=== PATIENT | male | born 1960 | race Caucasian/White ===

== ENCOUNTER 2017-07-01 10:35 | Emergency (ER) | payer OTHER ==
[~2017-07-01] VITALS: Ht 175.3 cm; Wt 74.8 kg
[2017-07-01 10:39] VITALS: BP 141/92
[2017-07-01] MEDS ORDERED: HYDROcodone/APAP 5/325MG 1 TAB TABLET PO ONE (11:15)
--- NOTE | 2017-07-01 11:21 | PHYS DOC ---
Past Medical History Past Medical History: No Pertinent History Past Surgical History: No Surgical History Alcohol Use: None Drug Use: None Adult General Chief Complaint Chief Complaint: HAND PROBLEM HPI HPI Patient is a 57 year old male presents to the ED complaining of left hand and wrist injury 2 months ago. Patient states that he was carrying a car door and it smashed his hand when he lost his balance. Patient states the pain has been getting progressively worse. When the injury happened 2 months ago the patient states he had swelling but since then swelling has gone down. States he has pain with range of motion of his thumb. Describes the pain as sharp. Rates the pain as 7 out of 10 when using it. Denies fever, headache, head/neck injury, rash, skin changes. Review of Systems Review of Systems Constitutional: Denies fever or chills [] Eyes: Denies change in visual acuity, redness, or eye pain [] HENT: Denies nasal congestion or sore throat [] Respiratory: Denies cough or shortness of breath [] Cardiovascular: No additional information not addressed in HPI [] GI: Denies abdominal pain, nausea, vomiting, bloody stools or diarrhea [] : Denies dysuria or hematuria [] Musculoskeletal: Denies back pain. Complains of left wrist and hand pain. [] Integument: Denies rash or skin lesions [] Neurologic: Denies headache, focal weakness or sensory changes [] Endocrine: Denies polyuria or polydipsia [] Current Medications Current Medications Current Medications Medications (Trade) Dose Ordered Sig/Tang Start Time Stop Time Status Last Admin Dose Admin Acetaminophen/ Hydrocodone Bitart (Lortab 5/325) 1 tab 1X ONCE 07/01/17 11:15 07/01/17 11:15 DC Allergies Allergies Allergies Coded Allergies Type Severity Reaction Last Updated Verified No Known Drug Allergies 07/01/17 No Physical Exam Physical Exam Constitutional: Well developed, well nourished, no acute distress, non-toxic appearance. [] HENT: Normocephalic, atraumatic, bilateral external ears normal, oropharynx moist, no oral exudates, nose normal. [] Eyes: PERRLA, EOMI, conjunctiva normal, no discharge. [] Neck: Normal range of motion, no tenderness, supple, no stridor. [] Cardiovascular:Heart rate regular rhythm, no murmur [] Lungs & Thorax: Bilateral breath sounds clear to auscultation [] Abdomen: Bowel sounds normal, soft, no tenderness, no masses, no pulsatile masses. [] Skin: Warm, dry, no erythema, no rash. [] Back: No tenderness, no CVA tenderness. [] Extremities: MILD LEFT THUMB/LATERAL HAND TENDERNESS. NO OVERLYING SKIN CHANGES OR SWELLING. no cyanosis, no clubbing, ROM intact, no edema. [] Neurologic: Alert and oriented X 3, normal motor function, normal sensory function, no focal deficits noted. [] Psychologic: Affect normal, judgement normal, mood normal. [] Current Patient Data Vital Signs Vital Signs Date Time Temp Pulse Resp B/P (MAP) Pulse Ox O2 Delivery O2 Flow Rate FiO2 07/01/17 10:39 98.0 84 16 96 Room Air 98.0 EKG EKG [] Radiology/Procedures Radiology/Procedures PROCEDURE: HAND LEFT 3V; WRIST 3V LEFT EXAM: Left hand, 3 views; left wrist, 3 views. HISTORY: Pain. COMPARISON: None. FINDINGS: Frontal, lateral and oblique views of the left hand and wrist are obtained. There is no fracture, dislocation or subluxation. No foreign body is seen. IMPRESSION: No acute osseous finding. []PROCEDURE: HAND LEFT 3V; WRIST 3V LEFT EXAM: Left hand, 3 views; left wrist, 3 views. HISTORY: Pain. COMPARISON: None. FINDINGS: Frontal, lateral and oblique views of the left hand and wrist are obtained. There is no fracture, dislocation or subluxation. No foreign body is seen. IMPRESSION: No acute osseous finding. Impressions: Patient has FROM, no paresthesias, good cap refill and pulses. Discussed imaging findings with patient. Negative for acute injury. Patient placed in thumb spica splint. NV intact post placement. Discussed follow-up with orthopedics in 1-2 days. Provided contact information/education. Discussed reasons to return to the ED. Patient understands and agrees with plan. Course & Med Decision Making Course & Med Decision Making Pertinent Labs and Imaging studies reviewed. (See chart for details) [] Dragon Disclaimer Dragon Disclaimer This electronic medical record was generated, in whole or in part, using a voice recognition dictation system. Departure Departure Impression: Primary Impression: Injury, hand Additional Impression: Wrist injury Disposition: HOME, SELF-CARE Condition: STABLE Referrals: JUN ALMANZA MD Patient Instructions: Wrist Pain, Wrist Sprain with [facility] Script[facility] Hydrocodone/Apap 5-325 (NORCO 5-325 TABLET) 1 Each Tablet 1 TAB PO TID, #8 TAB Prov: GRACIE THORNTON 07/01/17 Problem Qualifiers GRACIE THORNTON Jul 01, 2017 11:21
--- NOTE | 2017-07-01 11:32 | RAD ---
EXAM: Left hand, 3 views; left wrist, 3 views. HISTORY: Pain. COMPARISON: None. FINDINGS: Frontal, lateral and oblique views of the left hand and wrist are obtained. There is no fracture, dislocation or subluxation. No foreign body is seen. IMPRESSION: No acute osseous finding.
[2017-07-01] MEDS ORDERED: HYDR-971 PO (11:40)
== END 2017-07-01 12:05 | disposition home or self-care (01) ==
LOC: ER 10:35
DX: W23.0XXA Caught, crushed, jammed, or pinched between moving objects, initial encounter (principal); S69.92XA Unspecified injury of left wrist, hand and finger(s), initial encounter; Y93.89 Activity, other specified; Y99.8 Other external cause status; Y92.89 Other specified places as the place of occurrence of the external cause
CPT/HCPCS: 29125; 73110; 73130; 99284-25